=== PATIENT | female | born 1965 | race Caucasian/White ===

== ENCOUNTER → 2017-06-14 | Outpatient (CLI) | payer BC ==
--- NOTE | 2017-06-14 16:20 | DIAGNOSTIC IMAGING REPORT ---
SINUSES WITH BRAIN LAB CLINICAL HISTORY: 51 years-old Female presenting with CHRONIC SINUSITIS. TECHNIQUE: Multidetector CT of the sinuses was performed without the use of intravenous contrast. IV contrast: None. A dose lowering technique was used consistent with the principles of ALARA (as low as reasonably achievable). COMPARISON: None. CT DOSE (mGy.cm): The estimated cumulative dose is 703.30 mGy.cm. 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 Paranasal sinuses and mastoid air cells clear. Middle ears clear. No sclerosis of the maxillary sinus rodrigues to suggest chronic sinusitis. No osseous erosion. Bony nasal septum midline. Ostiomeatal units patent. Nasofrontal ethmoid recesses patent. No significant variant anatomy. No bony dehiscence of the optic canals or carotid siphons. Superficial soft tissues of the face within normal limits. Orbits normal. Upper cervical spine normal. IMPRESSION: No current evidence of acute or chronic sinusitis. No variant anatomy. Electronically signed by: Jensen Dorman M.D. 06/14/2017 4:19 PM Dictated Date/Time: 06/14/2017 4:17 PM
== END | disposition home or self-care (01) ==
LOC: C.CTS 15:42
PROVIDERS: ATTEND Otolaryngology
DX: J32.9 Chronic sinusitis, unspecified (principal)